=== PATIENT | male | born 1985 | race Caucasian/White ===

== ENCOUNTER 2020-10-22 13:34 | Outpatient (REF) | payer OTHER, SELFPAY ==
[2020-10-22 16:27] LABS: MANUAL DIFF FLAG NO
[2020-10-22 16:35] LABS: Basophils Percent Auto 0.3 % (0-2); Hematocrit 40.5 % (42-52); Hemoglobin 13.9 g/dl (14.0-18.0); Imm Gran Abs Auto 0.03 X10*3/uL (0.00-0.03); Imm Gran Pct Auto 0.3 % (0.0-0.4); Immature Retic Fraction 3.1 % (2.3-13.4); Lymphocytes Absolute Auto 0.8 X10*3/uL (1.2-4.9); Lymphocytes Percent Auto 8.6 % (20-40); Mean Corpuscular HGB Conc 34.3 g/dl (31.0-36.0); Mean Corpuscular Hemoglobin 29.7 pg (27.0-33.0); Mean Corpuscular Volume 86.5 fL (80-98); Mean Platelet Volume 9.6 fL (9.4-12.4); Monocytes Absolute Auto 0.6 X10*3/uL (0.1-1.2); Neutrophils Absolute Auto 7.8 X10*3/uL (2.0-8.3); Neutrophils Percent Auto 84.8 % (45-73); Platelet Count 328 X10*3/uL (160-400); Red Blood Count 4.68 X10*6/uL (4.60-5.80); Retic HGB Equivalent 34.6 pg (30.0-35.0); Reticulocyte Percent 1.3 % (0.5-1.8); Reticulocytes Absolute 0.061 X10*6/uL (0.026-0.095); White Blood Count 9.2 X10*3/uL (4.8-10.8)
== END 2020-10-22 13:35 | disposition home or self-care (01) ==
LOC: HO.HMGCLDS 13:34
PROVIDERS: PCP Internal Medicine; Visit Provider Internal Medicine
DX: D64.9 Anemia, unspecified (principal)
CPT/HCPCS: 80053; 85025; 85045

== ENCOUNTER 2021-02-11 09:14 | Outpatient (REF) | payer OTHER, SELFPAY ==
[2021-02-11 12:21] LABS: Alanine Aminotransferase 15 U/L (0-40); Albumin Level 4.6 g/dL (3.5-5.0); Alkaline Phosphatase 70 U/L (39-117); Anion Gap 14 (12-20); Aspartate Amino Transferase 14 U/L (5-37); Bilirubin Total 0.5 mg/dL (0.0-1.0); Blood Urea Nitrogen 6 mg/dL (9-16); Calcium 9.3 mg/dL (8.4-10.2); Carbon Dioxide 23 mmol/L (22-29); Chloride 98 mmol/L (96-108); Estimated Glomerular Filt Rate > 60; Glucose Random 94 mg/dL (60-115); Iron 79 mcg/dL (45-160); Potassium 4.4 mmol/L (3.3-5.1); Sodium 131 mmol/L (135-145); Total Protein 7.4 g/dL (6.5-8.0)
[2021-02-11 12:22] LABS: Ferritin 300 ng/mL (20-250); Free T4 (Free Thyroxine) 0.89 ng/dL (0.71-1.85); Thyroid Stimulating Hormone 0.38 uIU/mL (0.32-4.0)
[2021-02-11 12:51] LABS: Folate 8.4 ng/mL (> or = 4.0); Vitamin B12 351 pg/mL (200-900)
[2021-02-11 14:56] LABS: Percent Iron Saturation 27 % (15-50); Total Iron Binding Capacity 295 mcg/dL (228-428); Unsaturated Iron Binding 216 ug/dL
== END 2021-02-11 09:15 | disposition home or self-care (01) ==
LOC: HO.HMGCLDS 09:14
PROVIDERS: PCP Internal Medicine; Visit Provider Internal Medicine
DX: E66.9 Obesity, unspecified (principal); D64.9 Anemia, unspecified
CPT/HCPCS: 36415; 80053; 82607; 82728; 82746; 83540; 84439; 84443

== ENCOUNTER 2022-12-25 09:24 | Outpatient (REF) | payer SELFPAY | END 2022-12-25 09:25 | disposition home or self-care (01) | LOC: HO.LAB 09:24 | PROVIDERS: PCP Internal Medicine; Visit Provider Internal Medicine | DX: D64.9 Anemia, unspecified (principal); B35.3 Tinea pedis; E78.00 Pure hypercholesterolemia, unspecified | CPT/HCPCS: 36415; 80053; 80061; 82607; 82728; 82746; 83540; 84439; 84443; 85025; 85045 ==

== ENCOUNTER 2023-07-13 10:45 | Outpatient (AMB) | payer OTHER, SELFPAY ==
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
[2023-07-13 12:10] VITALS: BP 122/80; PULSE 78; TEMP 36.8; O2SAT 98; BMI 38.2
== END 2023-07-13 13:00 | disposition home or self-care (01) ==
PROVIDERS: PCP Internal Medicine; Visit Provider Nurse Practitioner Family
DX: S89.92XA Unspecified injury of left lower leg, initial encounter (principal); F84.0 Autistic disorder
CPT/HCPCS: 99214

== ENCOUNTER 2023-07-13 15:30 | Outpatient (REF) | payer SELFPAY ==
--- NOTE | ~2023-07-13 | XR_ITS ---
EXAMINATION: XR KNEE, LEFT XR TIBIA AND FIBULA, LEFT CLINICAL INFORMATION: Injury of the left lower leg. COMPARISON: None TECHNIQUE: Four views of the left knee. AP and lateral views of the left tibia and fibula. FINDINGS: Left knee: There is an oblique fracture of the proximal diaphysis minimal medial displacement (2 mm) of the distal fragment. No additional fractures. No joint effusion. Joint spaces are normal. Left tibia and fibula: Again seen is the oblique proximal fibular diaphyseal fracture. No additional fractures. Soft tissues are swollen with subcutaneous edema. The tibia is intact. Imaged portion of the ankle joint is normal. Ankle mortise is symmetric. XR/XR tibia fibula LT 2V IMPRESSION: 1. Oblique fracture of the proximal fibular diaphysis with minimal medial displacement of the distal fragment. 2. No additional fractures.
--- NOTE | ~2023-07-13 | XR_ITS ---
EXAMINATION: XR KNEE, LEFT XR TIBIA AND FIBULA, LEFT CLINICAL INFORMATION: Injury of the left lower leg. COMPARISON: None TECHNIQUE: Four views of the left knee. AP and lateral views of the left tibia and fibula. FINDINGS: Left knee: There is an oblique fracture of the proximal diaphysis minimal medial displacement (2 mm) of the distal fragment. No additional fractures. No joint effusion. Joint spaces are normal. Left tibia and fibula: Again seen is the oblique proximal fibular diaphyseal fracture. No additional fractures. Soft tissues are swollen with subcutaneous edema. The tibia is intact. Imaged portion of the ankle joint is normal. Ankle mortise is symmetric. XR/XR knee LT 4V IMPRESSION: 1. Oblique fracture of the proximal fibular diaphysis with minimal medial displacement of the distal fragment. 2. No additional fractures.
== END 2023-07-13 15:31 | disposition home or self-care (01) ==
LOC: HO.HMGCX 15:30
PROVIDERS: PCP Internal Medicine; Visit Provider Nurse Practitioner Family
DX: S89.92XA Unspecified injury of left lower leg, initial encounter (principal); X58.XXXA Exposure to other specified factors, initial encounter; Y93.9 Activity, unspecified; Y92.9 Unspecified place or not applicable; Y99.9 Unspecified external cause status
CPT/HCPCS: 73564; 73590

== ENCOUNTER 2023-07-18 06:19 | Outpatient (REF) | payer SELFPAY ==
--- NOTE | ~2023-07-18 | XR_ITS ---
EXAMINATION: XR TIBIA AND FIBULA, LEFT CLINICAL INFORMATION: Injury of left lower leg, initial encounter. COMPARISON: 07/13/2023. TECHNIQUE: AP and lateral views of the left tibia and fibula were obtained. FINDINGS: Redemonstration of an oblique fracture of the proximal diaphysis of the fibula with minimal displacement of the distal fracture fragment. Possible subtle minimal interval callus formation. XR/XR tibia fibula LT 2V IMPRESSION: Redemonstration of oblique fracture of the proximal diaphysis of the fibula with minimal displacement of the distal fracture fragment.
== END 2023-07-18 06:20 | disposition home or self-care (01) ==
LOC: HO.HOSX 06:19
PROVIDERS: Visit Provider Physician Assistant
DX: S82.832A Other fracture of upper and lower end of left fibula, initial encounter for closed fracture (principal)
CPT/HCPCS: 73590; 99202

== ENCOUNTER 2023-07-18 10:23 | Outpatient (AMB) | payer OTHER, SELFPAY ==
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
[2023-07-18 10:32] VITALS: BMI 38.2
[2023-07-18 10:45] VITALS: BMI 38.2
== END 2023-07-18 11:22 | disposition home or self-care (01) ==
PROVIDERS: PCP Internal Medicine; Visit Provider Physician Assistant
DX: S82.832A Other fracture of upper and lower end of left fibula, initial encounter for closed fracture (principal)
CPT/HCPCS: 99203

== ENCOUNTER 2023-08-16 12:21 | Outpatient (AMB) | payer OTHER, SELFPAY ==
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
== END 2023-08-16 12:55 | disposition home or self-care (01) ==
PROVIDERS: PCP Internal Medicine; Visit Provider Physician Assistant
DX: S82.832A Other fracture of upper and lower end of left fibula, initial encounter for closed fracture (principal)
CPT/HCPCS: 99213

== ENCOUNTER 2023-08-16 15:40 | Outpatient (REF) | payer SELFPAY ==
--- NOTE | ~2023-08-16 | XR_ITS ---
EXAMINATION: XR TIBIA AND FIBULA, LEFT CLINICAL INFORMATION: Pain COMPARISON: Radiographs 07/18/2023 TECHNIQUE: AP and lateral views of the left tibia and fibula were obtained. FINDINGS: Healing obliquely oriented mildly displaced fracture of the proximal fibular diaphysis with increasing periosteal reaction and no shanda is a bony calcification in unchanged alignment. Joint spaces are maintained. Soft tissues are unremarkable. XR/XR tibia fibula LT 2V IMPRESSION: Healing obliquely oriented mildly displaced fracture of the proximal fibular diaphysis with increasing periosteal reaction and no shanda is a bony calcification in unchanged alignment.
== END 2023-08-16 15:41 | disposition home or self-care (01) ==
LOC: HO.HOSX 15:40
PROVIDERS: Visit Provider Physician Assistant
DX: S82.832D Other fracture of upper and lower end of left fibula, subsequent encounter for closed fracture with routine healing (principal); X58.XXXD Exposure to other specified factors, subsequent encounter
CPT/HCPCS: 73590; 99212

== ENCOUNTER 2023-08-22 16:06 | Outpatient (AMB) | payer OTHER, SELFPAY ==
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
[2023-08-22 16:12] VITALS: BP 110/74; PULSE 74; O2SAT 96; BMI 39.8
== END 2023-08-22 16:36 | disposition home or self-care (01) ==
PROVIDERS: PCP Internal Medicine; Visit Provider Internal Medicine
DX: S82.832A Other fracture of upper and lower end of left fibula, initial encounter for closed fracture (principal); E66.9 Obesity, unspecified; F84.0 Autistic disorder; Z68.39 Body mass index [BMI] 39.0-39.9, adult
CPT/HCPCS: 99214

== ENCOUNTER 2024-07-04 11:11 | Outpatient (AMB) | payer OTHER, SELFPAY ==
[2024-07-04 11:25] VITALS: BP 136/70; PULSE 79; O2SAT 98; BMI 41.5
--- NOTE | 2024-07-04 11:25 | MHC.PC.OV ---
Vital Signs 07/04/24 11:25 Height 5 ft 6 in Weight 257 lb BMI 41.5 BP 136/70 Blood Pressure Location Lt brachial Position Sitting Pulse 79 Pulse Source Pulse Oximeter Pulse Oximetry (%) 98 Oxygen Delivery Method Room Air Intake Visit Reasons: Annual PE Allergies No Known Allergies Allergy (Verified 07/04/24 11:26) Medication List - Last Reconciled 07/04/24 by Brianna Kellogg MD acetaminophen 650 mg (2 x 325 mg) PO Q6H PRN carbamide peroxide 6.5% (Debrox) 5 drps otic (ears) Q12H 30 days cetirizine 10 mg PO DAILY cholecalciferol (vitamin D3) (Vitamin D3) 25 mcg PO QAM dextromethorphan-guaifenesin 5-100 mg/5 mL (Robitussin Cough-Chest Congestion DM) 10 mL PO Q8H PRN 30 days fluoride (sodium) 1.1% (PreviDent 5000 Booster Plus) 1 appl dental BID fluoxetine (Prozac) 20 mg PO DAILY fluticasone propionate 50 mcg/actuation 2 sprays intranasal DAILY miconazole nitrate 2% (Zeasorb AF) 1 appl topical BID olanzapine (Zyprexa) 2.5 mg PO DAILY olanzapine (Zyprexa) 5 mg PO BID oxcarbazepine (Trileptal) 600 mg PO BID Tobacco use date assessed: 07/04/24 Dental Screening Dental Screen Date: 07/04/24 Did you have a dental visit in the last 12 months?: Yes Did you have a dental problem in the last 6 months where you did not have access to dental care?: No Was dental information given to patient?: Patient has dentist HPI Annual PE HPI Details The patient is a 39-year-old male presenting with concerns related to weight management due to morbid obesity. His current Body Mass Index (BMI) is reported as 41, categorizing him in the morbidly obese range. The patient has expressed difficulties with weight control, exacerbated by limited physical activity and dietary challenges. Efforts to promote exercise include gym sessions and treadmill workouts, although adherence varies. The patient currently participates in day programs and occasionally exercises at the gym. No dietary restrictions were specifically mentioned, but he follows a structured meal pattern with breakfast, lunch, and dinner. There is a concern for potential future musculoskeletal problems, particularly with the knees, due to excess weight. The patient is not known to have any allergies to medications and is not reported to have any acute health issues such as dizziness, swallowing difficulties, or respiratory problems. No history of chest pain, shortness of breath, or gastrointestinal disturbances is noted. - Discussion on importance of weight management and exercise - Encouragement for regular exercise, aiming for 4-5 days per week - Referred for weight management program - Fasting blood work ordered - Employment in group homes with varying shifts - Participates in day programs - Physical activity includes occasional trips to the gym and use of treadmill - Structured meal pattern: breakfast, lunch, dinner - Expressed motivation to lose weight - General: Denies fever, chills, night sweats - Cardiovascular: Denies chest pain, palpitations - Respiratory: Denies shortness of breath, cough - Gastrointestinal: Denies nausea, vomiting, constipation - Ears/Nose/Throat: Denies difficulty swallowing [facility] Medical History (Updated 07/04/24 @ 12:11 by Brianna Kellogg MD) Obesity (BMI 30-39.9) Mental and behavioral problem Agranulocytosis secondary to cancer chemotherapy Anxiety Autism Surgical History No pertinent past surgical history Family History (Updated 08/22/23 @ 16:08 by YONI Leon) Father Medical history unknown Mother Medical history unknown Social History Housing: Apartment (Longterm) Alcohol intake: never Patient Tobacco Use Status: Never used Tobacco Tobacco use type: Cigarette e-Cigarette/Vaping Use: Never Used Second Hand Smoke Exposure: No service: No Current occupational status: unemployed Current occupational exposures/hazards: No Cognitive needs: Yes Hearing needs: No Vision needs: No Questionnaire PHQ-9 Over the last 2 weeks, how often have you been bothered by any of the following problems? 1. Little interest or pleasure in doing things: not at all 2. Feeling down, depressed, or hopeless: not at all 3. Trouble falling or staying asleep, or sleeping too much: not at all 4. Feeling tired or having little energy: not at all 5. Poor appetite or overeating: not at all 6. Feeling bad about yourself - or that you are a failure or have let yourself or your family down: not at all 7. Trouble concentrating on things, such as reading the newspaper or watching television: not at all 8. Moving or speaking so slowly that other people could have noticed. Or the opposite - being so fidgety or restless that you have been moving around a lot more than usual: not at all 9. Thoughts that you would be better off or of hurting yourself in some way: not at all Total score: 0 Source: Developed by Drs. Larry Lynne, Nena To, Elmo Paulino and colleagues, with an educational jenni from [employer]. Thrive Questionnaire Date Thrive assessed: 07/04/24 I am a: Parent/Caregiver What is your living situation today?: I have a steady place to live Within the past 12 months, did the food you bought not last and you didn't have the money to get more?: Often true Within the past 12 months, did you worry whether your food would run out before you got money to buy more?: Never true Do you have trouble paying for medicines?: No Do you have trouble getting transportation to medical appointments?: No Do you have trouble paying your heating and electricity bill?: No Do you have trouble taking care of your child, family member or friend?: No Do you have trouble with day-to-day activities such as bathing, preparing meals, shopping, managing finances, etc.?: No Are you currently unemployed and looking for a job?: No Are you interested in more education?: No Please select the resources that you would like help with: None Currently or been in a relationship where the following occur: I choose not to answer THRIVE Score: 1 AUDIT C Alcohol Use Questionnaire (AUDIT-C) 1. How often do you have a drink containing alcohol?: Never Total Score: 0 JAMILA-7 AMB Questionnaire JAMILA-7 Date JAMILA - 7 assessed: 07/04/24 Feeling nervous, anxious, or on edge: 0 = Not at all Not being able to stop or control worryin = Not at all Worrying too much about different things: 0 = Not at all Trouble relaxin = Not at all Being so restless that it is hard to sit still: 0 = Not at all Becoming easily annoyed or irritable: 0 = Not at all Feeling afraid as if something awful might happen: 0 = Not at all Total JAMILA-7 score (0-4 normal; 5-9 mild; 10-14 moderate; 15-21 severe): 0 Source: Developed by Drs. Larry Lynne, Nena To, Elmo Paulino and colleagues, with an educational jenni from [employer]. Review of Systems Const Denies poor appetite and Denies weakness Eyes Denies no additional complaints ENT Reports Normal hearing present, Denies dizziness, Denies nasal congestion, Denies tinnitus and Denies sore throat Card Denies chest pain, Denies syncope, Denies rapid heart rate and Denies dyspnea Resp Denies cough and Denies dyspnea GI Denies change in stool character, Reports constipation, Denies diarrhea, Denies nausea and Denies vomiting Denies dysuria and Denies urinary frequency Neuro Reports Normal hearing present, Denies confusion, Denies dizziness, Denies syncope and Denies weakness Psych Denies confusion Physical exam (Primary Care) Vital Signs: Last Vital Signs Pulse 79 07/04/24 11:25 BP 136/70 07/04/24 11:25 Pulse Ox 98 07/04/24 11:25 Oxygen Delivery Method Room Air 07/04/24 11:25 BMI result Body Mass Index 41.5 Tobacco/Smoking Status: Tobacco use Status Tobacco use date assessed 07/04/24 07/04/24 11:26 Patient Tobacco Use Status Never used Tobacco 07/04/24 11:26 Tobacco use type Cigarette 07/04/24 11:26 e-Cigarette/Vaping Use Never Used 07/04/24 11:26 PHQ-9: PHQ-9 Score PHQ-9: Total score 0 07/04/24 12:05 Thrive Assessment: Date of Thrive Assessment Date Thrive assessed 07/04/24 07/04/24 11:26 Currently or been in a relationship where the following occur: I choose not to answer Const General: No confusion Orientation/consciousness: No confusion HENMT Head: Yes normocephalic Ears: external ears normal and TM's normal bilaterally Face and sinus: Yes normal facial exam Mouth: moist mucous membranes Throat: Yes tonsils normal Eyes Conjunctivae: conjunctivae normal Pupils: Equal, round and reactive pupils present and Pupil accommodation reflex normal Direct Ophthalmoscopy: normal light reflex Neck Neck: No lymphadenopathy Thyroid: Thyroid normal Chest Chest palpation & inspection: normal inspection of the chest Resp Effort & Inspection: normal respiratory effort and no audible wheezes Auscultation: clear to auscultation bilaterally, no crackles, no wheezes and lung sounds not diminished Cardio Rate: regular rate Rhythm: regular rhythm Peripheral pulses: radial pulses present and dorsalis pedis present GI Palpation (GI): no masses Auscultation: normal bowel sounds and normoactive bowel sounds Rectal Exam - Male: Yes deferred Skin General skin exam: no rashes or lesions noted Rashes: no rashes Neuro General: No confusion Cranial nerves: Yes Equal, round and reactive pupils present and Yes Normal hearing present Cognition (Neuro): normal cognition Gait exam (Neuro): Normal gait present Motor exam (neuro): 5/5 motor strength present throughout Deep tendon reflexes (DTR's): Right brachioradialis reflex intensity grade: 2+, Left brachioradialis reflex intensity grade: 2+, Right patellar reflex intensity grade: 2+ and Left patellar reflex intensity grade: 2+ Extrem General: No edema Coding Level of Care Code New Pt Prev Care 18-39yr([id number] Diagnoses Annual physical exam Z00.00 Autism F84.0 Morbid obesity E66.01 Assessment & Plan Assessment & Plan (1) Annual physical exam: Code(s): Z00.00 - Encounter for general adult medical examination without abnormal findings Category: Medical (2) Autism: Code(s): F84.0 - Autistic disorder Category: Medical (3) Morbid obesity: Code(s): E66.01 - Morbid (severe) obesity due to excess calories Category: Medical Plan - Labs: Blood work ordered for fasting analysis - Address morbid obesity with referral to a weight management program - Scheduled fasting blood work to assess metabolic factors - Follow-up in three months to reassess weight management plan During the visit, I discussed the patient's weight management concerns due to his classification of morbid obesity. I emphasized the importance of regular physical activity and adherence to a structured exercise regimen, ideally at least four to five times a week. I explained the referral to a weight management program to provide structured support. We talked about potential health risks related to his current weight, such as future musculoskeletal problems. The patient was informed about the necessity of fasting blood work to provide further insights into his metabolic status and help guide future management steps. I advised a follow-up appointment in three months to evaluate progress and adjust the plan accordingly. The patient appeared motivated to follow the suggestions and agreed to the plan. - Engage in regular physical activity, aiming for at least four to five sessions per week - Attend the referred weight management program for structured support - Adhere to a structured diet with consistent meal times - Complete fasting blood work as soon as possible - Follow up in three months for reassessment of the weight management plan - Monitor for any new symptoms or health concerns and seek care if needed Orders: Orders Complete Blood Count Auto Diff Today D64.9 - Anemia, unspecified Ferritin Today D64.9 - Anemia, unspecified Lipid Panel Today E66.01 - Morbid (severe) obesity due to excess calories, E78.00 - Pure hypercholesterolemia, unspecified Vitamin B12 and Folate Today E66.01 - Morbid (severe) obesity due to excess calories UA w Microscopic Today E66.01 - Morbid (severe) obesity due to excess calories Comprehensive Met. Panel Today D64.9 - Anemia, unspecified Free T4 (Free Thyroxine) Today D64.9 - Anemia, unspecified Hemoglobin A1c Today D64.9 - Anemia, unspecified IRON PROFILE Today E66.01 - Morbid (severe) obesity due to excess calories Reticulocyte Count Today E66.01 - Morbid (severe) obesity due to excess calories Thyroid Stimulating Hormone Today E66.01 - Morbid (severe) obesity due to excess calories Referrals Medical Weight Management Referral E66.01 - Morbid (severe) obesity due to excess calories
== END 2024-07-04 12:32 | disposition home or self-care (01) ==
PROVIDERS: PCP Internal Medicine; Visit Provider Internal Medicine
DX: Z00.00 Encounter for general adult medical examination without abnormal findings (principal); F84.0 Autistic disorder; E66.01 Morbid (severe) obesity due to excess calories; Z68.41 Body mass index [BMI] 40.0-44.9, adult

== ENCOUNTER → 2024-07-04 11:11 | Outpatient (BNVA) | payer OTHER, SELFPAY | PROVIDERS: PCP Internal Medicine; Visit Provider Internal Medicine | DX: Z00.00 Encounter for general adult medical examination without abnormal findings (principal); E66.01 Morbid (severe) obesity due to excess calories; F84.0 Autistic disorder; D64.9 Anemia, unspecified; E78.00 Pure hypercholesterolemia, unspecified; Z68.41 Body mass index [BMI] 40.0-44.9, adult | CPT/HCPCS: 99385 ==